=== PATIENT | female | born 1955 | race Two or more races ===

== ENCOUNTER 2021-09-01 07:41 | Outpatient (CLI) | payer OTHER | END 2021-09-01 07:52 | disposition home or self-care (01) | LOC: TOM 07:41 | PROVIDERS: ATTEND Surgery | DX: R59.0 Localized enlarged lymph nodes (principal); K59.09 Other constipation; K92.1 Melena ==

== ENCOUNTER 2021-09-09 10:00 | Inpatient (IN) | payer OTHER ==
[~2021-09-09] VITALS: Ht 162.6 cm; Wt 68.9 kg
[2021-09-09] MEDS ORDERED: METFORMIN HCL500 M3 PO (14:32)
[2021-09-09] MEDS ORDERED: GEMFIBROZIL600 MG PO (14:32)
[2021-09-09] MEDS ORDERED: PENTOXIFYLLINE400 MG PO (14:33)
[2021-09-09] MEDS ORDERED: CHILDREN'S ASPI81 MG PO (14:33)
[2021-09-09] MEDS ORDERED: PLAVIX75 MG PO (14:33)
[2021-09-09] MEDS ORDERED: LOSARTAN POTASS50 MG PO (14:33)
[2021-09-09] MEDS ORDERED: GABAPENTIN800 M1 PO (14:33)
[2021-09-20] MEDS ORDERED: AMOX1TAB5 PO (10:24)
[2021-09-20] MEDS ORDERED: BENZONATATE100 MG PO (10:25)
[2021-09-20] MEDS ORDERED: MUCINEX600 MG PO (10:25)
[2021-09-20] MEDS ORDERED: OXYC1TAB9 PO (10:25)
== END 2021-09-20 10:47 | disposition home or self-care (01) | DRG 330 ==
LOC: O/R 09-14 06:15 → SURH 09-14 06:15
PROVIDERS: ADMIT Surgery; ATTEND Surgery
PROC: 07BB4ZZ Excision of Mesenteric Lymphatic, Percutaneous Endoscopic Approach (ICD-10-PCS; 2021-09-14)
PROC: 0DTG4ZZ Resection of Left Large Intestine, Percutaneous Endoscopic Approach (ICD-10-PCS; principal; 2021-09-14 11:45)
DX: C18.5 Malignant neoplasm of splenic flexure (principal); K92.1 Melena; R59.0 Localized enlarged lymph nodes; K59.09 Other constipation; R00.0 Tachycardia, unspecified; Z20.822 Contact with and (suspected) exposure to COVID-19; I10 Essential (primary) hypertension

== ENCOUNTER 2021-09-23 11:19 | Inpatient (IN) | payer OTHER ==
[~2021-09-23] VITALS: Ht 152.4 cm; Wt 68.9 kg
[~2021-09-23 11:19] MED LIST: AMOX1TAB5 PO; BENZONATATE100 MG PO; CHILDREN'S ASPI81 MG PO; GABAPENTIN800 M1 PO; GEMFIBROZIL600 MG PO; LOSARTAN POTASS50 MG PO; METFORMIN HCL500 M3 PO; MUCINEX600 MG PO; OXYC1TAB9 PO; PENTOXIFYLLINE400 MG PO; PLAVIX75 MG PO
--- NOTE | 2021-09-23 11:46 | NUR ---
SE RECIBE PACIENTE EN AMBULANCIA ALERTA Y ORIENTADA X3 QUIEN REFIERE DOLOR ABD SE MONITOREAN S/V Y SE UBICA PACINETE PACIENTE FUE OPERADA DE DE CANCER DE COLON RECIENTEMENTE.
--- NOTE | 2021-09-23 13:38 | NUR ---
PACIENTE EVALUADA POR DR SAMIA DAWSON [place] [facility], SE ORIENTA A PACIENTE SOBRE EL MISMO Y REFIERE ENTENDER, SE HE MUESTRAS Y SE CANALIZA BAJO MEDIDAS ASEPTICAS. SE LE HACE ENTREGA DE CONTRASTE PO Y SE LE INDICA NOTIFICAR HOOKER PRONTO LO CULMINE, SE ADM MED SJ ORDEN.
--- NOTE | 2021-09-23 17:54 | NUR ---
PENDIENTE FULL LIQUID DIET.
--- NOTE | 2021-09-24 00:11 | NUR ---
SE RECIBE FEMINA ALERTA Y ORIENTADA X 3 ESFERAS EN CAMA CON BARANDAS ELEVADAS POR SEGURIDAD. PRESENTANDO BUEN PATRON RESPIRATORIO. RECIBIENDO IV'S 0.9NSS BAJANDO A 100ML/HR AREA DE VENOPUNCION DEVON DE EDEMA Y ERITEMA. PENDIENTE CONSULTA CON DR.NICOLAS FLETCHER. SE EDUCA SOBRE CONTINUIDAD DE [place] [facility] EL CUAL REFIERE COMPRENDER. SE MANTIENE BAJO OBSERVACION.
--- NOTE | 2021-09-24 07:19 | NUR ---
SE RECIBE PTE FEMENINA DE 66 YRS ALERTA CONCIETNE Y TRANQUILA ,DEVON DE DOLOR AL MOMENTO FRANCISCO JAVIER REFIERE QUE SIGUE CON LEVES NAUSEAS. PTE SE OBSERVACON IVF'S PATENTE Y DEVON DE EDEMA. SE MANTIENE EN ESPERA DE MEDICO CONSULTOR DR.NICOLAS FLETCHER. SE MANTIENE BAJO OBSERVACION.
[2021-10-09] MEDS ORDERED: CIPRO500 MG PO (11:42)
[2021-10-09] MEDS ORDERED: METRONIDAZOLE500 MG PO (11:43)
[2021-10-09] MEDS ORDERED: ULTRAM50 MG PO (11:43)
[2021-10-09] MEDS ORDERED: INTESTINEX680 M1 PO (11:43)
== END 2021-10-09 14:51 | disposition home or self-care (01) | DRG 389 ==
LOC: ER 11:19 → SURH 09-24 11:21
PROVIDERS: ADMIT Surgery; ATTEND Surgery
PROC: 02HV33Z Insertion of Infusion Device into Superior Vena Cava, Percutaneous Approach (ICD-10-PCS; 2021-09-25)
PROC: BW21ZZZ Computerized Tomography (CT Scan) of Abdomen and Pelvis (ICD-10-PCS; 2021-09-29)
PROC: 0DJD8ZZ Inspection of Lower Intestinal Tract, Via Natural or Artificial Opening Endoscopic (ICD-10-PCS; principal; 2021-10-05)
DX: K91.31 Postprocedural partial intestinal obstruction (principal); C18.5 Malignant neoplasm of splenic flexure; I10 Essential (primary) hypertension; Z20.822 Contact with and (suspected) exposure to COVID-19